=== PATIENT | female | born 1980 | race Caucasian/White ===

== ENCOUNTER 2018-02-08 14:23 | Emergency (ER) | payer OTHER ==
[~2018-02-08] VITALS: Ht 167.6 cm; Wt 79.4 kg
== END 2018-02-08 20:08 | disposition home or self-care (01) ==
LOC: ER 14:23
DX: R10.2 Pelvic and perineal pain (principal)

== ENCOUNTER 2018-02-21 20:21 | Emergency (ER) | payer OTHER ==
[~2018-02-21] VITALS: Ht 167.6 cm; Wt 79.4 kg
[2018-02-22] MEDS ORDERED: PERCOCET 5-3251 EACH PO (06:49)
== END 2018-02-22 07:01 | disposition home or self-care (01) ==
LOC: ER 20:21
DX: R10.2 Pelvic and perineal pain (principal)